=== PATIENT | female | born 1985 | race Caucasian/White ===

== ENCOUNTER → 2016-12-28 | Outpatient (CLI) | payer MEDICAID, OTHER | END | disposition home or self-care (01) | LOC: CFH 08:14 | PROVIDERS: ATTEND Physician Assistant | DX: B18.1 Chronic viral hepatitis B without delta-agent (principal) | CPT/HCPCS: 76705 ==

== ENCOUNTER → 2017-12-22 | Outpatient (CLI) | payer OTHER | END | disposition home or self-care (01) | LOC: CFH 10:24 | PROVIDERS: ATTEND Physician Assistant | DX: B18.1 Chronic viral hepatitis B without delta-agent (principal) | CPT/HCPCS: 76705 ==

== ENCOUNTER → 2018-02-15 | Outpatient (CLI) | payer OTHER ==
[~2018-02-15] MED LIST: REGADENOSON 0.4 MG/5 ML SYRINGE ONE; SINCALIDE (KINEVAC) 5 MCG ONE
== END | disposition home or self-care (01) ==
LOC: PETCFH 08:00
PROVIDERS: ATTEND Physician Assistant
DX: Z02.9 Encounter for administrative examinations, unspecified (principal)
CPT/HCPCS: J2785; J2805

== ENCOUNTER → 2018-02-22 | Outpatient (CLI) | payer OTHER ==
[~2018-02-22] MED LIST changes: -REGADENOSON 0.4 MG/5 ML SYRINGE ONE
== END | disposition home or self-care (01) ==
LOC: PETCFH 10:07
PROVIDERS: ATTEND Physician Assistant
DX: B18.1 Chronic viral hepatitis B without delta-agent (principal)
CPT/HCPCS: 78227; A9537; J2805